=== PATIENT | male | born 1965 | race Caucasian/White ===

== ENCOUNTER 2017-03-16 00:18 | Emergency (ER) | payer OTHER ==
[2017-03-16] MEDS ORDERED: HYDR25TA6 (00:33)
[2017-03-16] MEDS ORDERED: METR0.00 (00:33)
[2017-03-16] MEDS ORDERED: ASPIRIN 81 MG CHEW TABLET PO ONE (00:45)
[2017-03-16 01:27] LABS: BASO % 0.4 % (0.0-1.0); EOS # 0.2 K/mm3 (0.0-0.50); EOS % 1.9 % (0.0-3.0); LARGE UNSTAINED CELL # 0.2 K/mm3 (0.0-0.4); LARGE UNSTAINED CELL % 2.4 % (0.0-4.0); LYMPH # 2.1 K/mm3 (1.5-4.5); LYMPH % 23.9 % (24.0-44.0); MEAN CORPUSCULAR HEMOGLOBIN 29.2 pg (27.0-33.0); MEAN CORPUSCULAR HGB CONC 33.8 g/dl (32.0-36.5); MEAN CORPUSCULAR VOLUME 86.3 fl (80.0-96.0); MONO # 0.6 K/mm3 (0.0-0.8); MONO % 7.3 % (0.0-5.0); NEUTROPHILS # 5.6 K/mm3 (1.8-7.7); NEUTROPHILS % 64.1 % (36.0-66.0); PLATELET COUNT, AUTOMATED 318 k/mm3 (150-450); RED CELL DISTRIBUTION WIDTH 13.1 % (11.5-14.5); WHITE BLOOD COUNT 8.8 K/mm3 (4.0-10.0)
[2017-03-16 01:41] LABS: ANION GAP 6 MEQ/L (8-16); BLOOD UREA NITROGEN 19 MG/DL (7-18); CALCIUM LEVEL 8.9 MG/DL (8.5-10.1); CARBON DIOXIDE LEVEL 31 MEQ/L (21-32); CHLORIDE LEVEL 104 MEQ/L (98-107); CREATININE FOR GFR 0.93 MG/DL (0.70-1.30); GLOMERULAR FILTRATION RATE > 60.0 (>56); GLUCOSE, FASTING 125 MG/DL (70-105); POTASSIUM SERUM 3.7 MEQ/L (3.5-5.1); SODIUM LEVEL 141 MEQ/L (136-145)
[2017-03-16 01:58] VITALS: BP 153/67
--- NOTE | 2017-03-16 08:20 | ECGEPIP ---
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
--- NOTE | 2017-03-16 08:39 | REP ---
Clinical: Chest pain . Comparison: None . Technique: PA and lateral. Findings: The mediastinum and cardiac silhouette are normal. The lung peterson are clear and without acute consolidation, effusion, or pneumothorax. The skeletal structures are intact and normal. Impression: 1. No acute cardiopulmonary process. Signed by Álvaro Shah MD 03/16/2017 08:28 A
== END 2017-03-16 02:33 | disposition home or self-care (01) ==
LOC: M ED 01:22
DX: R00.2 Palpitations (principal); R94.31 Abnormal electrocardiogram [ECG] [EKG]; Z79.899 Other long term (current) drug therapy

== ENCOUNTER 2017-11-24 00:56 | Emergency (ER) | payer OTHER ==
[2017-11-24 01:39] LABS: BASO # 0.1 10^3/uL (0.0-0.2); BASO % 0.7 % (0.0-1.0); EOS # 0.1 10^3/uL (0.0-0.50); EOS % 0.6 % (0.0-3.0); HEMATOCRIT 47.6 % (42.0-52.0); HEMOGLOBIN 16.9 g/dl (14.0-18.0); IMMATURE GRANULOCYTE # 0.2 10^3/uL (0-0); IMMATURE GRANULOCYTE % 1.8 % (0-0); LYMPH # 3.6 10^3/uL (1.5-4.5); LYMPH % 31.2 % (24.0-44.0); MEAN CORPUSCULAR HGB CONC 35.5 g/dl (32.0-36.5); MEAN CORPUSCULAR VOLUME 81.8 fl (80.0-96.0); MONO # 1.2 10^3/uL (0.0-0.8); MONO % 10.6 % (0.0-5.0); NEUTROPHILS # 6.4 10^3/uL (1.8-7.7); NEUTROPHILS % 55.1 % (36.0-66.0); PLATELET COUNT, AUTOMATED 400 10^3/uL (150-450); RED BLOOD COUNT 5.82 10^6/uL (4.30-6.10); RED CELL DISTRIBUTION WIDTH 12.7 % (11.5-14.5); WHITE BLOOD COUNT 11.7 10^3/uL (4.0-10.0)
[2017-11-24 02:06] LABS: ANION GAP 7 MEQ/L (8-16); BLOOD UREA NITROGEN 17 MG/DL (7-18); CALCIUM LEVEL 9.1 MG/DL (8.5-10.1); CARBON DIOXIDE LEVEL 31 MEQ/L (21-32); CHLORIDE LEVEL 102 MEQ/L (98-107); CK-MB VALUE MASS 3.3 NG/ML (0.0-3.6); CPK CREATINE PHOSPHOKINASE 210 U/L (39-308); CREATININE FOR GFR 1.02 MG/DL (0.70-1.30); GLOMERULAR FILTRATION RATE > 60.0 (>56); GLUCOSE, FASTING 100 MG/DL (70-100); MAGNESIUM LEVEL 2.2 MG/DL (1.8-2.4); MB/CK RELATIVE INDEX 1.57 (< OR =4); POTASSIUM SERUM 3.4 MEQ/L (3.5-5.1); SODIUM LEVEL 140 MEQ/L (136-145); TROPONIN I < 0.02 NG/ML (< 0.10)
[2017-11-24 02:09] LABS: D-DIMER QUANT < 270.0 ng/ml (<500)
== END 2017-11-24 03:47 | disposition home or self-care (01) ==
LOC: M ED 00:56
DX: I49.3 Ventricular premature depolarization (principal); Z87.891 Personal history of nicotine dependence
CPT/HCPCS: 93005

== ENCOUNTER 2017-11-30 20:16 | Emergency (ER) | payer OTHER ==
[2017-11-30] MEDS: NS 1,000 ML IV (20:30)
[2017-11-30] MEDS: METOPROLOL TART 50 MG TAB PO (20:38)
[2017-11-30] MEDS: ASPIRIN 81 MG CHEW TABLET PO (20:38)
[2017-11-30 20:45] LABS: BASO # 0.1 10^3/uL (0.0-0.2); BASO % 0.5 % (0.0-1.0); EOS # 0.3 10^3/uL (0.0-0.50); EOS % 2.4 % (0.0-3.0); HEMOGLOBIN 17.6 g/dl (14.0-18.0); IMMATURE GRANULOCYTE # 0.1 10^3/uL (0-0); IMMATURE GRANULOCYTE % 0.8 % (0-0); LYMPH # 3.6 10^3/uL (1.5-4.5); LYMPH % 30.9 % (24.0-44.0); MEAN CORPUSCULAR HEMOGLOBIN 29.2 pg (27.0-33.0); MEAN CORPUSCULAR HGB CONC 35.2 g/dl (32.0-36.5); MEAN CORPUSCULAR VOLUME 82.9 fl (80.0-96.0); MONO # 1.2 10^3/uL (0.0-0.8); MONO % 10.1 % (0.0-5.0); NEUTROPHILS # 6.5 10^3/uL (1.8-7.7); NEUTROPHILS % 55.3 % (36.0-66.0); PLATELET COUNT, AUTOMATED 363 10^3/uL (150-450); RED BLOOD COUNT 6.03 10^6/uL (4.30-6.10); RED CELL DISTRIBUTION WIDTH 12.7 % (11.5-14.5); WHITE BLOOD COUNT 11.7 10^3/uL (4.0-10.0)
[2017-11-30] MEDS ORDERED: METOPROLOL 5 MG/5 ML VIAL IV (21:00)
[2017-11-30] MEDS: METOPROLOL 5 MG/5 ML VIAL IV (21:01)
[2017-11-30] MEDS: LORazepam 2 MG/ML VIAL (J2060) IV (21:05)
[2017-11-30 21:08] LABS: INR 0.86; PROTHROMBIN TIME 11.8 SECONDS (12.4-14.5)
[2017-11-30 21:56] LABS: ANION GAP 8 MEQ/L (8-16); BLOOD UREA NITROGEN 20 MG/DL (7-18); CALCIUM LEVEL 9.6 MG/DL (8.5-10.1); CARBON DIOXIDE LEVEL 29 MEQ/L (21-32); CHLORIDE LEVEL 102 MEQ/L (98-107); CPK CREATINE PHOSPHOKINASE 125 U/L (39-308); CREATININE FOR GFR 0.97 MG/DL (0.70-1.30); GLOMERULAR FILTRATION RATE > 60.0 (>56); GLUCOSE, FASTING 112 MG/DL (70-100); POTASSIUM SERUM 3.2 MEQ/L (3.5-5.1); SODIUM LEVEL 139 MEQ/L (136-145); TROPONIN I < 0.02 NG/ML (< 0.10)
[2017-11-30 22:01] LABS: CK-MB VALUE MASS 2.9 NG/ML (0.0-3.6); MB/CK RELATIVE INDEX 2.32 (< OR =4)
== END 2017-11-30 22:54 | disposition home or self-care (01) ==
LOC: M ED 20:16
DX: I48.91 Unspecified atrial fibrillation (principal); I11.0 Hypertensive heart disease with heart failure; I50.9 Heart failure, unspecified; Z87.891 Personal history of nicotine dependence
CPT/HCPCS: J2060

== ENCOUNTER 2019-02-26 01:16 | Emergency (ER) | payer OTHER ==
[~2019-02-26] VITALS: Ht 182.9 cm; Wt 111.4 kg
[~2019-02-26 01:16] MED LIST: ASPI81TA85 PO; AZIT-12; HYDR25TA6; HYDR50TAB; METO1TAB7 PO; METR0.00; PRED20TA; VENTAER
[2019-02-26 01:42] VITALS: BP 150/86
[2019-02-26] MEDS ORDERED: METOPROLOL TART 25 MG TABLET PO ONE (01:45)
[2019-02-26] MEDS ORDERED: NS 1,000 ML IV ONE (01:45)
[2019-02-26 03:00] VITALS: BP 144/83
--- NOTE | 2019-02-26 07:17 | ECGEPIP ---
Stationary ECG Study [facility] - ED Test Date: 2019-02-26 Pat Name: MICHELE SOTO Department: Room: - Gender: M Parole Supervisor: gt : 1965 Requested By: TIFFANIE LIMON Order Number: [id number] Reading MD: Kobe Florentino Measurements Intervals [place] Rate: 98 P: 44 UT: 146 QRS: 13 QRSD: 86 T: 16 QT: 336 QTc: 429 Interpretive Statements SINUS RHYTHM NSTTW ABNORMALITIES RHYTHM/RATE CHANGE COMPARED TO 11/30/17 Electronically Signed On 02-26-2019 7:17:07 EDT by Kobe Florentino
== END 2019-02-26 03:02 | disposition home or self-care (01) ==
LOC: M ED 01:16
DX: I48.91 Unspecified atrial fibrillation (principal); I10 Essential (primary) hypertension; Z79.899 Other long term (current) drug therapy

== ENCOUNTER 2019-05-17 01:26 | Inpatient (IN) | payer OTHER ==
[~2019-05-17] VITALS: Ht 182.9 cm; Wt 113.6 kg
[2019-05-17] MEDS ORDERED: METOPROLOL 5 MG/5 ML VIAL IV SCH (02:00)
[2019-05-17] MEDS ORDERED: METOPROLOL SUCC (TopROL XL) 50MG **XL** TAB PO ONE (02:00)
[2019-05-17] MEDS ORDERED: METOPROLOL 5 MG/5 ML VIAL As Ordered ONE (02:00)
[2019-05-17 02:09] LABS: BASO # 0.1 10^3/uL (0.0-0.2); BASO % 0.8 % (0.0-1.0); EOS # 0.3 10^3/uL (0.0-0.50); HEMATOCRIT 52.2 % (42.0-52.0); HEMOGLOBIN 17.7 g/dl (13.5-17.5); LYMPH # 2.6 10^3/uL (1.5-4.5); LYMPH % 29.6 % (24.0-44.0); MEAN CORPUSCULAR HEMOGLOBIN 29.3 pg (27.0-33.0); MEAN CORPUSCULAR HGB CONC 33.9 g/dl (32.0-36.5); MEAN CORPUSCULAR VOLUME 86.4 fl (80.0-96.0); MONO # 0.8 10^3/uL (0.0-0.8); MONO % 9.3 % (0.0-5.0); NEUTROPHILS # 4.9 10^3/uL (1.8-7.7); NEUTROPHILS % 56.2 % (36.0-66.0); PLATELET COUNT, AUTOMATED 323 10^3/uL (150-450); RED BLOOD COUNT 6.04 10^6/uL (4.30-6.10); WHITE BLOOD COUNT 8.7 10^3/uL (4.0-10.0)
[2019-05-17 02:17] LABS: INR 0.96; PROTHROMBIN TIME 12.5 SECONDS (11.8-14.0)
[2019-05-17 02:18] LABS: PARTIAL THROMBOPLASTIN TIME 30.6 SECONDS (25.0-38.4)
[2019-05-17] MEDS ORDERED: NS 1,000 ML IV SCH (02:26)
[2019-05-17 02:46] LABS: ALBUMIN 4.1 GM/DL (3.2-5.2); ALT/SGPT 45 U/L (12-78); BILIRUBIN,DIRECT < 0.1 MG/DL (0.0-0.2); BILIRUBIN,TOTAL 0.3 MG/DL (0.2-1.0); BLOOD UREA NITROGEN 16 MG/DL (7-18); CALCIUM LEVEL 9.5 MG/DL (8.5-10.1); CARBON DIOXIDE LEVEL 27 MEQ/L (21-32); CHLORIDE LEVEL 108 MEQ/L (98-107); CK-MB VALUE MASS 4.4 NG/ML (<3.6); CPK CREATINE PHOSPHOKINASE 171 U/L (39-308); CREATININE FOR GFR 0.98 MG/DL (0.70-1.30); FREE T4 1.13 NG/DL (0.76-1.46); GLOMERULAR FILTRATION RATE > 60.0 (>56); GLUCOSE, FASTING 116 MG/DL (70-100); MAGNESIUM LEVEL 2.1 MG/DL (1.8-2.4); MB/CK RELATIVE INDEX 2.57 (< OR =4); PHOSPHORUS LEVEL 3.9 MG/DL (2.5-4.9); POTASSIUM SERUM 4.4 MEQ/L (3.5-5.1); SODIUM LEVEL 143 MEQ/L (136-145); TOTAL PROTEIN 7.6 GM/DL (6.4-8.2); TROPONIN I < 0.02 NG/ML (< 0.10)
[2019-05-17] MEDS ORDERED: AMIODARONE HCL 150 MG in IV 1 EA IV STA ×2 (03:16→04:44)
--- NOTE | 2019-05-17 06:02 | ECGEPIP ---
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
[2019-05-17] MEDS ORDERED: ASPI81CH33 PO (06:18)
[2019-05-17] MEDS ORDERED: MAGN400T3 PO (06:18)
[2019-05-17] MEDS ORDERED: METO1TAB7 PO ×2 (06:18→10:07)
[2019-05-17] MEDS ORDERED: MOM 30ML SUSPENSION UDC PO PRN (07:30)
[2019-05-17] MEDS ORDERED: ACETAMINOPHEN TAB 650MG DOSE (2X325MG) PO PRN (07:30)
--- NOTE | 2019-05-17 08:16 | REP ---
Chest x-ray: Two views. History: Syncope versus seizure . Comparison study: No comparison study . Findings: The lungs are well inflated and free of infiltrate. The pleural angles are sharp. The heart size is normal. Pulmonary vasculature is not increased. No significant bony abnormality is seen. EKG monitoring electrodes are visible. Impression: Negative chest x-ray. Electronically Signed by Aman Diaz MD 05/17/2019 08:07 A
[2019-05-17 08:27] VITALS: BP 163/115
[2019-05-17] MEDS ORDERED: METOPROLOL SUCC (TopROL XL) 50MG **XL** TAB PO SCH (09:00)
[2019-05-17] MEDS ORDERED: ENOXAPARIN 40 MG/0.4 ML SYRINGE (J1650) SC SCH (09:00)
[2019-05-17] MEDS ORDERED: ASPIRIN 81 MG ENTERIC TAB PO SCH (09:00)
[2019-05-17 09:49] VITALS: BP 166/94
--- NOTE | 2019-05-17 14:08 | HPE ---
DATE OF ADMISSION: 05/17/2019 DIVIDER OPERATOR: Dr. Chowdary HISTORY OF PRESENT ILLNESS: Mr. 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 He states that he has a history of paroxysmal atrial fibrillation and can tell when he is in and out of atrial fibrillation. In the past, he has had elevated heart rate, for which he has required emergency room visits. After medication administration, he improved and sent home from the emergency room in the past. However, during this visit, his palpitations and elevated heart rate continued despite metoprolol succinate 50 mg by mouth, amiodarone IV 150 mg times two doses, diltiazem 10 mg IV with his heart rate sustaining in the 110s to 140s. He denies any chest pain, nausea, vomiting, lightheadedness, dizziness. He only reports palpitations. No recent fevers, chills, illnesses, travel history or medication changes or sick contacts. He is otherwise feeling well and has no other complaints. PAST MEDICAL HISTORY: 1. Paroxysmal atrial fibrillation. 2. Hypertension. 3. Obesity. FAMILY HISTORY: The patient reports parents are healthy otherwise without any cardiac issues. ALLERGIES: None. PAST SURGICAL HISTORY: 1. Appendectomy. HOME MEDICATIONS: - aspirin 81 mg by mouth every 2 days - magnesium oxide 800 mg by mouth daily - metoprolol succinate 50 mg by mouth daily REVIEW OF SYSTEMS: 10 point review of systems negative besides that noted in the history of present illness. PHYSICAL EXAMINATION: VITAL SIGNS: Temperature 96.2, pulse 136, respirations 20, blood pressure 160/115, pulse oximetry 94% on room air. GENERAL: Resting comfortably in bed in no acute distress. Alert and oriented times three. Pleasant gentleman who appears his stated age. HEENT: Normocephalic, atraumatic. Moist mucous membranes. No jugular venous distention (JVD) or carotid bruits. NECK: Supple. CARDIAC: Irregular rhythm at a tachycardic rate. No appreciable murmur, clicks or gallops. Minimal peripheral edema. LUNGS: Clear to auscultation bilaterally without any adventitious sounds. Equal chest rise bilaterally. ABDOMEN: Obese, soft, nontender, nondistended. Normoactive bowel sounds. EXTREMITIES: 2+ radial pulses bilaterally. Able to move all extremities independently. MUSCULOSKELETAL: Strength is intact. Ambulates independently. NEUROLOGIC: No focal deficits. SKIN: No visible lesions or ulcerations. LABORATORIES: WBC 8.7, hemoglobin and hematocrit 7.7 and 52.2, platelets 323. Sodium and potassium 140 and 4.4, BUN and creatinine 16 and 0.98. Magnesium and phosphorous 2.1 and 3.9. Liver profile normal. Cardiac markers negative. TSH is normal at 2.37. IMAGING: Chest x-ray on 05/17/2019 reports negative chest x-ray. This was personally viewed and interpreted by me. ASSESSMENT AND PLAN: 1. Paroxysmal atrial fibrillation with rapid ventricular response. The patient is asymptomatic. Although his heart rate continues to stay in the 120s to 140s despite medication administration in the emergency room. Our options include admitting the patient to intensive care unit (ICU) on a Cardizem drip, however, we are told that there are no ICU beds available. We have reached out to shoe sprayer ultrasonic tester, who recommended doubling his metoprolol succinate to 50 mg by mouth twice a day instead of once a day and then also giving an additional dose of diltiazem 10 mg IV currently . We will admit him to the progressive care unit (PCU) and monitor on telemetry. The cause of his rapid ventricular response is unclear at this point given that there is no infectious etiology and thyroid and electrolytes are within normal limits. The patient reports that he has been fully compliant with his medications. Continue his workup and we will obtain an echocardiogram as well. Cardiology was consulted and appreciate their input. His [id number] score is 1, positive for HTN, and thus AC is excluded. 2. Hypertension. Continue on metoprolol double dose, as stated above. 3. Obesity. Complicates care. 4. Deep vein thrombosis (DVT) prophylaxis. Lovenox subcutaneously. DISPOSITION: We will admit to the hospitalist service and monitor on telemetry. Waiting to be seen by cardiology. Attending Addendum: I performed a history and physical examination and discussed the management with the resident. I reviewed the resident's note and agree with the documented findings and plan of care documented above. MONICO
--- NOTE | 2019-05-17 14:49 | DSES ---
DATE OF ADMISSION: 05/17/2019 DATE OF DISCHARGE: 05/17/2019 Patient has been admitted today for atrial fibrillation with rapid ventricular response (RVR); however, he is demanding to leave against medical advice as he has just found out that his sister, unfortunately, has . It has been discussed with him that the risks of leaving include, worsening of his arrhythmia, heart attack, and even . He has relayed understanding of this and, nonetheless, still wants to leave. Fortunately, the second dose of 10 mg intravenous (IV) Cardizem has successfully brought his heart rate down into the 80s and he is, otherwise, stable. He has been strongly advised to continue staying in the hospital for continued treatment and monitoring; however, he is adamant about leaving. We have explained to him that we have sent in scripts for his adjusted dose of metoprolol succinate from 50 once a day to now bid as per Cardiology recommendations to his pharmacy and that he should closely followup outpatient with his filter tank tender, which is normally Dr. Chowdary, but currently Dr. Parry is covering for him. Patient was advised to return to the emergency room (ER) immediately for further treatment. Attending Note: I have personally seen and examined the patient this am. I agree with the finding and the plan of care as documented above in the resident's note. I counselled the patient against leaving but he has to leave even with risks because of family emergency. MONICO
== END 2019-05-17 09:45 | disposition home or self-care (01) | DRG 201 ==
LOC: M ED 01:26 → M ED INP 07:50
PROVIDERS: ADMIT Internal Medicine Nephrology; ATTEND Internal Medicine Nephrology
DX: I48.0 Paroxysmal atrial fibrillation (principal); I10 Essential (primary) hypertension; E66.9 Obesity, unspecified

== ENCOUNTER 2019-06-17 21:13 | Emergency (ER) | payer OTHER ==
[~2019-06-17] VITALS: Ht 182.9 cm; Wt 113.6 kg
[~2019-06-17 21:13] MED LIST changes: +ASPI81CH33 PO; +MAGN400T PO
[2019-06-17 22:33] LABS: BASO % 0.3 % (0.0-1.0); EOS # 0.1 10^3/uL (0.0-0.50); EOS % 0.7 % (0.0-3.0); HEMOGLOBIN 16.4 g/dl (13.5-17.5); LYMPH # 1.9 10^3/uL (1.5-4.5); LYMPH % 15.5 % (24.0-44.0); MEAN CORPUSCULAR HEMOGLOBIN 28.8 pg (27.0-33.0); MEAN CORPUSCULAR HGB CONC 34.2 g/dl (32.0-36.5); MEAN CORPUSCULAR VOLUME 84.4 fl (80.0-96.0); MONO # 0.8 10^3/uL (0.0-0.8); MONO % 6.4 % (0.0-5.0); NEUTROPHILS # 9.4 10^3/uL (1.8-7.7); NEUTROPHILS % 76.1 % (36.0-66.0); PLATELET COUNT, AUTOMATED 310 10^3/uL (150-450); RED BLOOD COUNT 5.69 10^6/uL (4.30-6.10); WHITE BLOOD COUNT 12.4 10^3/uL (4.0-10.0)
[2019-06-17 22:46] LABS: ALBUMIN 4.2 GM/DL (3.2-5.2); ALT/SGPT 39 U/L (12-78); BILIRUBIN,TOTAL 0.4 MG/DL (0.2-1.0); BLOOD UREA NITROGEN 14 MG/DL (7-18); CALCIUM LEVEL 9.3 MG/DL (8.5-10.1); CARBON DIOXIDE LEVEL 28 MEQ/L (21-32); CHLORIDE LEVEL 107 MEQ/L (98-107); CK-MB VALUE MASS 4.3 NG/ML (<3.6); CPK CREATINE PHOSPHOKINASE 149 U/L (39-308); CREATININE FOR GFR 0.89 MG/DL (0.70-1.30); GLOMERULAR FILTRATION RATE > 60.0 (>56); GLUCOSE, FASTING 110 MG/DL (70-100); LIPASE 71 U/L (73-393); MB/CK RELATIVE INDEX 2.89 (< OR =4); POTASSIUM SERUM 3.9 MEQ/L (3.5-5.1); SODIUM LEVEL 139 MEQ/L (136-145); TOTAL PROTEIN 7.3 GM/DL (6.4-8.2); TROPONIN I < 0.02 NG/ML (< 0.10)
[2019-06-17 22:56] LABS: INR 0.98; PROTHROMBIN TIME 12.7 SECONDS (11.8-14.0)
[2019-06-17 23:06] LABS: MAGNESIUM LEVEL 2.1 MG/DL (1.8-2.4)
[2019-06-17 23:15] VITALS: BP 134/71
--- NOTE | 2019-06-18 07:37 | REP ---
Portable chest, 10:33 p.m., single AP view with the patient upright: Comparison is 05/17/2019. The lung peterson are clear. The cardiac size is normal. The phil, mediastinum, and skeletal structures are unremarkable. Impression: Negative portable chest. There is no interval change. Electronically Signed by Sergey Zepeda MD 06/18/2019 07:29 A
--- NOTE | 2019-06-18 10:34 | ECGEPIP ---
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
== END 2019-06-17 23:27 | disposition home or self-care (01) ==
LOC: M ED 21:13
DX: I49.1 Atrial premature depolarization (principal); I10 Essential (primary) hypertension; E66.9 Obesity, unspecified; Z79.899 Other long term (current) drug therapy; Z79.82 Long term (current) use of aspirin

== ENCOUNTER 2019-09-17 12:27 | Emergency (ER) | payer OTHER ==
[~2019-09-17] VITALS: Ht 193 cm; Wt 113.6 kg
[~2019-09-17 12:27] MED LIST changes: -MAGN400T PO; +MAGN400T3 PO
[2019-09-17 13:53] LABS: BASO # 0.1 10^3/uL (0.0-0.2); BASO % 0.5 % (0.0-1.0); EOS % 0.2 % (0.0-3.0); HEMATOCRIT 51.1 % (42.0-52.0); HEMOGLOBIN 17.1 g/dl (13.5-17.5); LYMPH # 1.6 10^3/uL (1.5-5.0); LYMPH % 13.5 % (24.0-44.0); MEAN CORPUSCULAR HEMOGLOBIN 28.8 pg (27.0-33.0); MEAN CORPUSCULAR HGB CONC 33.5 g/dl (32.0-36.5); MEAN CORPUSCULAR VOLUME 86.2 fl (80.0-96.0); MONO # 0.8 10^3/uL (0.0-0.8); MONO % 6.8 % (0.0-5.0); NEUTROPHILS # 9.1 10^3/uL (1.5-8.5); NEUTROPHILS % 78.1 % (36.0-66.0); PLATELET COUNT, AUTOMATED 330 10^3/uL (150-450); RED BLOOD COUNT 5.93 10^6/uL (4.30-6.10); WHITE BLOOD COUNT 11.7 10^3/uL (4.0-10.0)
[2019-09-17 14:23] LABS: ALBUMIN 4.1 GM/DL (3.2-5.2); ALT/SGPT 44 U/L (12-78); BILIRUBIN,DIRECT 0.2 MG/DL (0.0-0.2); BILIRUBIN,TOTAL 0.8 MG/DL (0.2-1.0); BLOOD UREA NITROGEN 13 MG/DL (7-18); CALCIUM LEVEL 9.4 MG/DL (8.5-10.1); CARBON DIOXIDE LEVEL 24 MEQ/L (21-32); CHLORIDE LEVEL 108 MEQ/L (98-107); CREATININE FOR GFR 0.88 MG/DL (0.70-1.30); GLOMERULAR FILTRATION RATE > 60.0 (>56); GLUCOSE, FASTING 101 MG/DL (70-100); LIPASE 165 U/L (73-393); POTASSIUM SERUM 4.6 MEQ/L (3.5-5.1); SODIUM LEVEL 140 MEQ/L (136-145); TOTAL PROTEIN 7.6 GM/DL (6.4-8.2)
[2019-09-17] MEDS ORDERED: NS 1,000 ML IV ONE (17:45)
[2019-09-17] MEDS ORDERED: GI COCKTAIL 50ML BTL(HYOSCYAMINE/MAALOX/LIDOCAINE VISCOUS)(1:3:1) PO ONE (17:45)
[2019-09-17] MEDS ORDERED: PANTOPRAZOLE 40MG INJ (PROTONIX) (C9113) IV ONE (17:45)
[2019-09-17] MEDS ORDERED: ONDANSETRON 4MG/2ML VIAL (J2405) IV ONE (17:45)
[2019-09-17] MEDS ORDERED: ISOVUE-370 76% 100ML VIAL (Q9967) As Ordered ONE (17:52)
[2019-09-17 18:28] LABS: CK-MB VALUE MASS 3.2 NG/ML (<3.6); CPK CREATINE PHOSPHOKINASE 240 U/L (39-308); MB/CK RELATIVE INDEX 1.33 (< OR =4); TROPONIN I < 0.02 NG/ML (< 0.10)
[2019-09-17] MEDS ORDERED: NORC1TAB7 PO (19:13)
[2019-09-17] MEDS ORDERED: MORPHINE 4 MG/ML 1ML VIAL/SYRINGE (J2270) IV ONE (19:15)
[2019-09-17 20:14] VITALS: BP 180/89
--- NOTE | 2019-09-17 20:33 | REP ---
CT ABDOMEN AND PELVIS WITH IV CONTRAST: TECHNIQUE: Axial contrast enhanced images from the lung bases to the pubic symphysis using 100 mL Isovue 370 intravenous contrast material with multiplanar reformations. Visualized lung bases are clear. The liver demonstrates no mass. Patient has had a prior cholecystectomy. There is no biliary dilatation. Spleen is unremarkable. Left adrenal nodule measures 1.8 cm which may represent an adenoma. In the superior body of the pancreas there is a focal 1 cm hypodense area with apparent adjacent induration of fat. This may represent pancreatitis. However, I would recommend followup to rule out underlying small cystic mass. Kidneys are unremarkable with no hydronephrosis. There is no abdominal aortic aneurysm with mild scattered atherosclerotic calcification. There is no adenopathy. There is no free air or free fluid. No bowel wall thickening is seen. The appendix is normal. There is small bilateral inguinal hernia containing fat. Urinary bladder is not distended and not evaluated. Left rectus muscle lipoma is noted. IMPRESSION: 1 cm hypodense area in the superior body of the pancreas with what appears to be mild adjacent induration of fat. This may indicate pancreatitis. Recommend followup to rule out underlying cystic mass. Status post cholecystectomy without biliary dilatation. Small bilateral inguinal hernias containing fat. 1.8 cm nodule left adrenal gland may represent an adenoma. Followup recommended. Electronically Signed by Sergey Juarez MD 09/18/2019 03:42 P
--- NOTE | 2019-09-17 23:52 | ECGEPIP ---
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
--- NOTE | 2019-09-20 10:32 | ED PDOC ---
Post-Departure Follow-Up zaira nuno faxed formal report of ct abdp for fu Honey Garcia MD Sep 20, 2019 10:32
== END 2019-09-17 20:24 | disposition home or self-care (01) ==
LOC: M ED 12:27
DX: K85.90 Acute pancreatitis without necrosis or infection, unspecified (principal); K59.00 Constipation, unspecified; R51 Headache; I48.91 Unspecified atrial fibrillation; I10 Essential (primary) hypertension; Z90.49 Acquired absence of other specified parts of digestive tract; Z79.82 Long term (current) use of aspirin
CPT/HCPCS: 74177; 80048; 80076; 81001; 82550; 82553; 83690; 84484; 85025; 93005; 96361; 96374; 96375; 99284; C9113; J2270; J2405; Q9967

== ENCOUNTER 2021-02-06 16:03 | Day surgery (SDC) | payer OTHER ==
[~2021-02-06] VITALS: Ht 182.9 cm; Wt 113.3 kg
[~2021-02-06 16:03] MED LIST changes: -ASPI81TA85 PO; +ASPI81TA86 PO; +NORC1TAB7 PO
[2021-02-06] MEDS ORDERED: CETI-24 PO (16:09)
[2021-02-06] MEDS ORDERED: METO1TAB7 PO (16:09)
[2021-02-06] MEDS ORDERED: ceFAZolin SOD 2 GM in IV 1 EA IV ONE (17:10)
[2021-02-06] MEDS ORDERED: MORPHINE 4 MG/ML 1ML VIAL/SYRINGE (J2270) IV ONE (17:10)
[2021-02-06] MEDS ORDERED: BOOSTRIX/ADACEL VACCINE (DIPHTH/PERTUSS/ACELL/TETANUS) 0.5ML SYR IM ONE (17:10)
[2021-02-06] MEDS ORDERED: NS 1,000 ML IV ONE (17:10)
[2021-02-06] MEDS ORDERED: LIDOCAINE 2% MDV 20ML VIAL SC ONE (17:15)
[2021-02-06 17:38] LABS: HEMATOCRIT 49.8 % (42.0-52.0); HEMOGLOBIN 16.6 g/dl (13.5-17.5); MEAN CORPUSCULAR HEMOGLOBIN 28.3 pg (27.0-33.0); MEAN CORPUSCULAR HGB CONC 33.3 g/dl (32.0-36.5); PLATELET COUNT, AUTOMATED 348 10^3/uL (150-450); RED BLOOD COUNT 5.86 10^6/uL (4.30-6.10); WHITE BLOOD COUNT 12.7 10^3/uL (4.0-10.0)
--- NOTE | 2021-02-06 18:14 | REP ---
INDICATION: trauma, saw blade mult. lacs of fingers COMPARISON: None. TECHNIQUE: Four views right hand. FINDINGS: There is a comminuted fracture of the 5th distal phalanx. There is no other evidence of fracture or dislocation. Deep soft tissue disruption is noted of the 3rd through 5th digits.There is spurring of the 2nd and 3rd distal phalanges and head of 3rd metacarpal. IMPRESSION: Comminuted fracture 5th distal phalanx. <Electronically signed by Sergey Juarez > 02/06/21 [id number]
[2021-02-06] MEDS ORDERED: MAG-84TA PO (20:16)
[2021-02-06] MEDS ORDERED: ROCURONIUM BROMIDE 50 MG/5 ML VIAL As Ordered ONE (20:48)
[2021-02-06] MEDS ORDERED: LIDOCAINE 2% 100MG/5ML SDV (FOR ANES.) As Ordered ONE (20:48)
[2021-02-06] MEDS ORDERED: propofoL 200 MG/20 ML VIAL As Ordered ONE ×2 (20:48→20:52)
[2021-02-06] MEDS ORDERED: ONDANSETRON 4MG/2ML VIAL As Ordered ONE (20:49)
[2021-02-06] MEDS ORDERED: MIDAZOLAM INJ 2MG/2ML VIAL (J2250 PER 1MG) As Ordered ONE (20:49)
[2021-02-06] MEDS ORDERED: dexameTHASONE 4 MG/ML 1ML VIAL (J1100 PER 1MG) As Ordered ONE (20:49)
[2021-02-06] MEDS ORDERED: fentaNYL 250 MCG/5 ML INJECTION (J3010) As Ordered ONE (20:49)
[2021-02-06] MEDS ORDERED: ePHEDrine SULFATE 25 MG/5 ML(5MG/ML) SYRINGE As Ordered ONE ×2 (22:26→23:49)
[2021-02-06] MEDS ORDERED: ceFAZolin 2 GM/D5W 50 ML IV BAG (J0690 PER 500MG) As Ordered ONE (22:28)
[2021-02-06] MEDS ORDERED: SUGAMMADEX SODIUM 500 MG/5 ML VIAL (BRIDION) As Ordered ONE (22:51)
[2021-02-06] MEDS ORDERED: PHENYLephrine 500MCG 5ML (100MCG/ML) SYRINGE As Ordered ONE ×2 (23:00→23:05)
[2021-02-06] MEDS ORDERED: KETOROLAC 60MG 2ML VIAL As Ordered ONE (23:04)
[2021-02-07] MEDS ORDERED: MORPHINE 2 MG/ML 1ML VIAL (J2270) IV PRN (00:15)
[2021-02-07] MEDS ORDERED: PERCOCET 5MG/325MG TAB PO PRN (00:15)
[2021-02-07] MEDS ORDERED: METOCLOPRAMIDE INJ 10MG/2ML VIAL (J2765 PER 1) IV PRN (00:15)
[2021-02-07] MEDS ORDERED: ONDANSETRON 4MG/2ML VIAL IV PRN (00:15)
[2021-02-07] MEDS ORDERED: LR 1,000 ML IV SCH (00:15)
[2021-02-07] MEDS: fentaNYL 100 MCG/2 ML INJECTION (J3010) IV PRN ×4 (00:21→00:38)
[2021-02-07 01:00] VITALS: BP 153/85
[2021-02-07] MEDS ORDERED: ceFAZolin SOD 2 GM in IV 1 EA IV ONE (01:00)
--- NOTE | 2021-02-07 09:04 | ER ---
ER CONSULTATION DATE: 02/06/2021 TIME: 6 p.m. CONSULTED SERVICE: Orthopaedic surgery. CONSULTED PHYSICIAN: Lamont Sy MD HISTORY OF PRESENT ILLNESS: This is a 55-year-old male who sustained a right hand laceration by table saw. He had a right hand palmar laceration involving the volar aspect of the patient's right index finger, middle finger, ring finger, and small finger. This was a zone 2 injury which involved the middle finger flexor digitorum profundus. The patient also had an open tuft fracture of the right small finger distal phalanx. Orthopaedic surgery was consulted for the aforementioned injury and the patient is indicated for a right hand irrigation and debridement and exploration of the traumatic laceration involving the aforementioned finger. The patient was also indicated for a right small finger revision amputation. PAST MEDICAL HISTORY: Includes hypertension and atrial fibrillation. PAST SURGICAL HISTORY: Cholecystectomy 2016, hernia several decades prior. ALLERGIES: Seasonal. CURRENT MEDICATIONS: Include: - metoprolol 50 mg - aspirin 81 mg Patient is a nondrinker, nonsmoker, non-IV drug user. REVIEW OF SYSTEMS: 14-point review of systems was negative unless as otherwise described in the history of present illness (HPI) above. PHYSICAL EXAMINATION: Patient is alert to person, time, and place. Physical exam of the right hand: Patient has obvious laceration involving zone 2 of the right hand to include the index finger, middle finger, ring finger, and small finger. With minimal exploration I can appreciate the patient's middle finger flexor digitorum profundus flexor tendon in zone 2. However, the patient was able to make a full fist with 5/5 strength. The patient did also have a large laceration involving the small finger distal phalanx which appeared to be an open tuft fracture. The patient displayed 5/5 motor strength to the right hand without any rotational deformity. The patient did have an obvious distal phalanx fracture of the small finger and did have some sensation loss to the ulnar aspect of the patient's ring finger distal to the laceration. It appeared that the digital nerve on the ring finger ulnar aspect was likely compromised during the initial injury. The patient otherwise reported sensation intact to the pulps of each of his fingers of the right hand. The patient's right upper extremity was otherwise intact and this was an isolated injury. Radiographs of the patient's right hand demonstrates distal phalanx fracture of the small finger of the right hand, the distal most 20% of the small finger distal phalanx. There are no other osseous abnormalities noted in the soft tissue disruption involving the aforementioned fingers. IMPRESSION: This is a 55-year-old male with right hand injury as described above requiring right hand irrigation and debridement, exploration of the injury, and small finger revision amputation. PLAN: The patient was given 2 grams of Ancef in the emergency room (ER) and his tetanus was updated appropriately. He was given the appropriate pain medication by the emergency room (ER) provider. The patient was irrigated with 3 liters of normal saline by the emergency room (ER) provider. The patient was placed in a dressing. On my examination, he was an appropriate candidate for right hand irrigation and debridement given the extensive soft tissue disruption as well as exploration of the patient's middle finger flexor digitorum profundus (FDP) tendon. The patient also requires a right small finger revision amputation given the open nature of his tuft fracture involving the distal phalanx. He was consented for such. The patient was made nothing by mouth and his COVID test was negative.
--- NOTE | 2021-02-07 09:22 | RO ---
OPERATIVE NOTE DATE OF OPERATION: 02/06/2021 PREOPERATIVE DIAGNOSES: 1. Right hand laceration by saw to the right index finger, middle finger, ring finger, small finger zone 2 involving the middle finger flexor digitorum profundus. 2. 30% laceration of middle finger flexor digitorum profundus zone 2. 3. Right small finger distal phalanx fracture. 4. Digital nerve injury to the ring finger ulnar aspect. POSTOPERATIVE DIAGNOSES: 1. Right hand laceration by saw to the right index finger, middle finger, ring finger, small finger zone 2 involving the middle finger flexor digitorum profundus. 2. 30% laceration of middle finger flexor digitorum profundus zone 2. 3. Right small finger distal phalanx fracture. 4. Digital nerve injury to the ring finger ulnar aspect. PROCEDURES: 1. Right hand irrigation and debridement involving index finger, middle finger, ring finger and small finger. 2. Exploration of the right hand. 3. Revision amputation to the right small finger distal phalanx. SURGEON: Lamont Sy MD FLOUR INSPECTOR: None. SUPERVISING ATTENDING: Lamont Sy MD ANESTHESIA: GETA FINDINGS: The patient had laceration to the right hand index finger, middle finger, ring finger and small finger to include skin as well as 30% of the FDP of the right middle finger in zone 2. The patient also had open tuft fracture of the right small finger distal phalanx. INDICATIONS: The patient is a 55-year-old male who sustained a saw injury to his right hand while doing woodworking at home on January,. The patient presented to [facility] where he was evaluated for right hand injuries as described above. Orthopedic surgery was consulted for the aforementioned injuries. The patient was indicated for right hand irrigation and debridement, exploration of the flexor tendon of right hand as well as revision amputation of the right small finger distal phalanx. TOURNIQUET TIME: 80 minutes. ESTIMATED BLOOD LOSS: 20 mL. IV FLUIDS: Please see anesthesia report. IV ANTIBIOTICS: 2 gm Ancef. IMPLANTS: None. SPECIMEN: None. CULTURES: None. DESCRIPTION OF PROCEDURE: The patient was met in the preoperative holding area where the patient's operative extremity, side and patient identity were confirmed to be correct. The patient was then transported to the operating theater where he was placed supine on regular surgical bed. The patient's right upper extremity was placed on a hand table. Safety straps secured the patient to the bed. All bony prominences were well padded. The bilateral lower extremities had SCDs in place. A timeout was called to confirm correct patient, correct operative extremity and correct consent, and all staff was in agreement. The patient was then draped in the usual sterile fashion. We began the procedure by copiously irrigating all the laceration sites to include the right hand index finger, middle finger, ring finger and small finger using 6 liters of normal saline. At this point in time after copious irrigation I performed a loose approximation of the laceration involving the volar aspect of the ring finger distal phalanx using one nylon stitch. I then turned my attention to the right middle finger volar laceration in zone 2 overlying the middle phalanx. I was able to appreciate a 30% tear within the flexor digitorum profundus on the ulnar aspect. However, the rest of the tendon was in continuity and good condition. I debrided the edges of the tear and the patient was taken through full range of motion without any triggering. I then loosely approximated the dermis and epidermis of the skin using interrupted nylon simple suture. I then turned my attention to the right ring finger. There were no flexor digitorum profundus or flexor digitorum superficialis flexor tendon involvement. The necrotic looking skin edges were debrided and this was loosely approximated with nylon suture. Attention was then turned to the patient's right small finger where he had an open tuft fracture. I used a rongeur to debride out comminuted distal phalanx fracture. The patient had approximately 75% of the residual distal phalanx. At this point in time I then smoothed the edges of the remainder of the distal phalanx using rasp. I removed the patient's fingernail and was able to cover the defect using the patient's small finger pad which was then approximated with chromic gut suture. I was able to close the nailbed laceration overlying the previously fractured distal phalanx. Using chromic gut suture I placed aluminum metallic splint within the eponychial fold in order to ensure that this remained open and able to provide space for the amish of the nail plate. This was then secured using chromic gut. At this point we were complete with the procedure. We then placed Xeroform over the patient's surgical wounds followed by Antonia. The patient's right upper extremity was placed in volar slab splint for soft tissue rest in the intrinsic plus position. The patient was extubated and transferred to the postanesthesia care unit. The patient will remain in the sling for five days until the patient presents to [facility] for wound check. He will follow up with Dr. Jacobo at [facility] for wound check and initiation of occupational therapy. Occupational therapy will follow the FDP or flexor digitorum profundus laceration rehab protocol. However, given the fact that he had 75% of the tendon intact will encourage active and passive range of motion from his occupational therapy rehab protocol. The patient was prescribed Percocet, Zofran and Colace which was picked up by his at [facility]. The patient's was notified of the proceedings.
--- NOTE | 2021-02-07 17:15 | REP ---
INDICATION: SURGERY COMPARISON: 02/06/2021 5:27 p.m. TECHNIQUE: Multiple C-arm views right 5th digit. FINDINGS: Soft tissue disruption of distal 5th digit again noted with fracture of distal phalanx. IMPRESSION: 14 seconds of fluoroscopy time is utilized. <Electronically signed by Sergey Juarez > 02/07/21 [id number]
== END 2021-02-07 01:50 | disposition home or self-care (01) ==
LOC: M ED 16:03 → M SDC 20:38 → M MS5PR 02-07 01:00 → M SDC 02-07 01:50
PROVIDERS: ATTEND Orthopaedic Surgery
DX: S62.636B Displaced fracture of distal phalanx of right little finger, initial encounter for open fracture (principal); S61.214A Laceration without foreign body of right ring finger without damage to nail, initial encounter; S61.210A Laceration without foreign body of right index finger without damage to nail, initial encounter; S61.212A Laceration without foreign body of right middle finger without damage to nail, initial encounter; W31.2XXA Contact with powered woodworking and forming machines, initial encounter; Y93.D3 Activity, furniture building and finishing; Y92.008 Other place in unspecified non-institutional (private) residence as the place of occurrence of the external cause; Y99.9 Unspecified external cause status; I10 Essential (primary) hypertension; I48.91 Unspecified atrial fibrillation; Z79.82 Long term (current) use of aspirin; Z79.899 Other long term (current) drug therapy
CPT/HCPCS: 12001; 12031; 26951; 73130; 85027; 90471; 90715; 96361; 96365; 96372; 96375; 99284; J0690; J1100; J1885; J2250; J2270; J2370; J2405; J3010; U0002

== ENCOUNTER 2023-12-22 00:13 | Emergency (ER) | payer OTHER ==
[~2023-12-22] VITALS: Ht 182.9 cm; Wt 113.9 kg
[~2023-12-22 00:13] MED LIST changes: +CETI-24 PO; +MAG-84TA PO; -MAGN400T3 PO; +MAGN400T33 PO
[2023-12-22 01:02] LABS: BASO % 0.4 % (0.0-1.0); EOS # 0.2 10^3/uL (0.0-0.5); HEMATOCRIT 47.7 % (42.0-52.0); HEMOGLOBIN 16.4 g/dl (13.5-17.5); LYMPH # 2.1 10^3/uL (1.5-5.0); LYMPH % 26.5 % (24.0-44.0); MEAN CORPUSCULAR HEMOGLOBIN 29.2 pg (27.0-33.0); MEAN CORPUSCULAR HGB CONC 34.4 g/dl (32.0-36.5); MEAN CORPUSCULAR VOLUME 84.9 fl (80.0-96.0); MONO # 0.8 10^3/uL (0.0-0.8); MONO % 9.8 % (2.0-8.0); NEUTROPHILS # 4.6 10^3/uL (1.5-8.5); NEUTROPHILS % 59.5 % (36.0-66.0); PLATELET COUNT, AUTOMATED 229 10^3/uL (150-450); RED BLOOD COUNT 5.62 10^6/uL (4.30-6.10); WHITE BLOOD COUNT 7.8 10^3/uL (4.0-10.0)
[2023-12-22 01:34] LABS: BLOOD UREA NITROGEN 19 MG/DL (9-23); CARBON DIOXIDE LEVEL 24 MMOL/L (20-31); CHLORIDE LEVEL 105 MMOL/L (98-107); CK-MB VALUE MASS 3.4 NG/ML (<3.6); CPK CREATINE PHOSPHOKINASE 116 U/L (46-171); CREATININE FOR GFR 0.79 MG/DL (0.70-1.30); GLOMERULAR FILTRATION RATE > 60.0 (>56); GLUCOSE, FASTING 109 MG/DL (60-100); MB/CK RELATIVE INDEX 2.93 (< OR =4); POTASSIUM SERUM 3.8 MMOL/L (3.5-5.1); SODIUM LEVEL 137 MMOL/L (136-145)
[2023-12-22] MEDS: NS 1,000 ML IV ONE (02:01)
[2023-12-22 03:30] VITALS: BP 133/67
[2023-12-22 03:45] VITALS: TEMP 98.4; O2SAT 99
== END 2023-12-22 04:10 | disposition home or self-care (01) ==
LOC: M ED 00:13
DX: R00.2 Palpitations (principal); E86.0 Dehydration; I49.1 Atrial premature depolarization; Z86.79 Personal history of other diseases of the circulatory system; Z87.891 Personal history of nicotine dependence; Z79.82 Long term (current) use of aspirin; Z79.899 Other long term (current) drug therapy

== ENCOUNTER → 2024-03-13 | Outpatient (CLI) | payer OTHER | LOC: M SLEEP 20:00 | PROVIDERS: ATTEND Physician Assistant | DX: G47.33 Obstructive sleep apnea (adult) (pediatric) (principal) ==

== ENCOUNTER → 2024-07-28 | Outpatient (CLI) | payer OTHER | LOC: M SLEEP 20:00 | PROVIDERS: ATTEND Physician Assistant | DX: G47.33 Obstructive sleep apnea (adult) (pediatric) (principal) ==